=== PATIENT | male | born 1970 | race Caucasian/White ===

== ENCOUNTER 2018-06-11 08:15 | Emergency (ER) | payer OTHER ==
[2018-06-11 08:20] VITALS: BP 125/87
--- NOTE | 2018-06-11 08:26 | EDPHY ---
HPI/HX/ROS/PE/MDM Narrative: CHIEF COMPLAINT: "My hand is killing me" HISTORY OF PRESENT ILLNESS: This patient is a 47 year old male complaining of left hand pain, paresthesias, and numbness. He has played piano since age [age] and works as a pianist and composer and is quite concerned regarding his symptoms. He has noted paresthesias in his hands at night over the past year and a half. Over the last two days, he had more frequent and persistent sensation of numbness in his thumb , pointer, and middle fingers. Increased pain when he closes his fingers into a fist. He was unable to sleep due to pain last night. This morning, he felt his fingers were "frozen" in place. He has not taken any pain medications / antiinflammatories. He has not noted any swelling. He does have a ganglion cyst on his inner left wrist, but he has not followed up with a primary care provider or hand specialist for this. He denies any unusual activities recently. No personal or family history of clotting disorders. No fever, chills , chest pain, shortness of breath, palpitations, vomiting, diarrhea, urinary complaints, headache, lightheadedness. REVIEW OF SYSTEMS: A comprehensive 10 system review of systems is otherwise negative aside from elements mentioned in the history of present illness and medical decision making. PAST MEDICAL HISTORY: Denies. SOCIAL HISTORY: . Works as a composer/pianist. Lives in [place]. VITAL SIGNS: Reviewed by me GENERAL: Well-developed, well-nourished, resting comfortably in no respiratory distress. HEENT: Benign exam LUNGS: Clear to auscultation bilaterally, no wheezes, rhonchi or rales. CARDIAC: Regular rate and rhythm, no rubs, murmurs or gallops. ABDOMEN: Soft, nontender, nondistended, bowel sounds normal. BACK: No CVA tenderness. EXTREMITIES: Ganglion cyst to inner left wrist. Patient describes pattern of numbness across his thumb, pointer, and middle fingers. Motor strength 5/5, normal function flexors and extensors in the hand. Brisk capillary refill. Normal radial and ulnar pulses. Hand is warm to the touch. Sensation intact to light touch. Strength is appropriate. No trauma. No edema. Range of motion is normal throughout. NEURO: Alert and oriented, grossly nonfocal. SKIN: Warm and dry, no rash. PSYCHIATRIC: Normal mentation, no agitation. Portions of this note were transcribed by a medical registrar. I personally performed a history, physical exam, medical decision making, and confirmed accuracy of information the transcribed note. ED Course: 47 y/o male presents with left hand paresthesias, numbness, and pain. Symptoms are primarily in a median nerve distribution with occasional ring finger involvement. Plan to administer 60mg IM Toradol and 40mg PO Prednisone for symptom relief. I suspect this patient is presenting with carpal tunnel syndrome. Patient provided with a Velcro wrist splint for symptom relief. Referral to hand specialist provided. Prescription for Prednisone and Vicodin provided for symptom relief. Plan to discharge home in good condition. Follow up and return precautions discussed. The patient is comfortable with this plan. MDM: Differential diagnoses for the patient's symptom complex was considered including but not limited to wrist sprain, carpal tunnel syndrome, vascular insufficiency, upper extremity DVT, compartment syndrome. - Data Points Medications Given: Discontinued Medications Ketorolac Tromethamine (Toradol) 60 mg IM EDNOW ONE Stop: 06/11/18 08:55 Last Admin: 06/11/18 08:58 Dose: 60 mg Prednisone (Prednisone) 40 mg PO EDNOW ONE Stop: 06/11/18 08:54 Last Admin: 06/11/18 08:57 Dose: 40 mg General Time Seen by Provider: 06/11/18 08:25 Initial Vital Signs: Initial Vital Signs Temperature (C) 36.3 C 06/11/18 08:16 Heart Rate 82 06/11/18 08:16 Respiratory Rate 17 06/11/18 08:16 Blood Pressure 125/87 H 06/11/18 08:16 O2 Sat (%) 96 06/11/18 08:16 O2 Delivery Mode Room Air Allergies/Adverse Reactions: No Known Allergies Allergy (Unverified 06/11/18 08:16) Home Medications: Medication Instructions Recorded Adderall 10 mg Tablet 06/11/18 Hydrocodone/APAP 5/325 [[place] 1 tab PO Q6H PRN #10 tab 06/11/18 5/325 (RX)] predniSONE 20 mg PO DAILY #10 tab 06/11/18 predniSONE 20 mg PO DAILY #10 tablet 06/11/18 Departure - Departure Disposition: Home, Routine, Self-Care Clinical Impression: Carpal tunnel syndrome of left wrist Condition: Good Instructions: Paresthesia (ED) Additional Instructions: Follow up with a hand surgeon for further evaluation. We have referred you to our hand surgeon operations mgr. Take your Prednisone as prescribed. Wear your splint as directed at night to keep your wrist in a neutral position. you may use this during the day as well when you are not playing if this helps to relieve your symptoms. Return for swelling, loss of feeling, severe pain, changes in skin color, or other worsening of condition. Take Tylenol, 650mg every 6 hours as needed for pain. You may take Vicodin as prescribed as needed for severe pain. Do not take Tylenol with Vicodin as this medication already contains acetaminophen. Avoid ibuprofen use, though you may use this occasionally as directed on the packaging. Referrals: Hoang Flanagan MD [Primary Care Provider] - As per Instructions Donny Amador MD [Medical Doctor] - As per Instructions Prescriptions: Hydrocodone/APAP 5/325 [[place] 5/325 (RX)] 1 tab PO Q6H PRN #10 tab PRN Reason: Pain predniSONE 20 mg PO DAILY #10 tablet predniSONE 20 mg PO DAILY #10 tab Report Scribed for: Amanda Bernardo Report Scribed by: Yamilet Waggoner Date of Report: 06/11/18 Time of Report: 08:46
[2018-06-11] MEDS ORDERED: predniSONE 20 MG TAB PO ONE (08:53)
[2018-06-11] MEDS ORDERED: KETOROLAC 30 MG/1 ML SDV IM ONE (08:54)
== END 2018-06-11 09:16 | disposition home or self-care (01) ==
DX: G56.02 Carpal tunnel syndrome, left upper limb (principal)
CPT/HCPCS: J1885; J7512; L3984